=== PATIENT | male | born 1990 | race Caucasian/White ===

== ENCOUNTER → 2022-02-19 | Outpatient (CLI) | payer SELFPAY | END | disposition home or self-care (01) | LOC: LABSPEC 12:47 | PROVIDERS: Referring Provider Physician Assistant; Visit Provider Physician Assistant | DX: S82.262D Displaced segmental fracture of shaft of left tibia, subsequent encounter for closed fracture with routine healing (principal) | CPT/HCPCS: 87070; 87077; 87186; 87205 ==